=== PATIENT | female | born 1995 | race Caucasian/White ===

== ENCOUNTER → 2020-11-07 | Outpatient (CLI) | payer OTHER | LOC: M RAD 12:39 | PROVIDERS: ATTEND Obstetrics & Gynecology | DX: Z30.431 Encounter for routine checking of intrauterine contraceptive device (principal) ==

== ENCOUNTER 2020-12-05 11:30 | Outpatient (RCR) | payer OTHER | END 2020-12-07 | LOC: M PT 11:30 | PROVIDERS: ATTEND Internal Medicine | DX: M25.561 Pain in right knee (principal) ==

== ENCOUNTER → 2020-12-15 | Outpatient (REF) | payer OTHER | LOC: M LAB REF 15:53 | PROVIDERS: ATTEND Physician Assistant | DX: R10.84 Generalized abdominal pain (principal) ==

== ENCOUNTER → 2021-07-19 | Outpatient (REF) | payer OTHER ==
[~2021-07-19] MED LIST: B-12100010 PO; DOXY100C3 PO; MEDR10TA PO; METR-265 PO; OMEP40CA5 PO; ONDA-83 PO; SERT25TA21 PO
[2021-07-19 16:59] LABS: RSV AMPLIFICATION NEGATIVE (NEGATIVE)
== END ==
LOC: M WUC 15:34
PROVIDERS: ATTEND Physician Assistant
DX: J02.9 Acute pharyngitis, unspecified (principal); R68.83 Chills (without fever)

== ENCOUNTER → 2021-07-27 | Outpatient (CLI) | payer OTHER ==
[~2021-07-27] MED LIST changes: +E-Z-PAQUE 96% w/w SUSP 176GM BTL As Ordered ONE
== END ==
LOC: M RAD 10:19
PROVIDERS: ATTEND Internal Medicine Gastroenterology
DX: K50.90 Crohn's disease, unspecified, without complications (principal); R10.31 Right lower quadrant pain; D64.9 Anemia, unspecified; R10.13 Epigastric pain; E55.9 Vitamin D deficiency, unspecified

== ENCOUNTER 2021-11-23 07:59 | Emergency (ER) | payer OTHER ==
[~2021-11-23] VITALS: Ht 170.2 cm; Wt 77.3 kg
[~2021-11-23 07:59] MED LIST changes: -E-Z-PAQUE 96% w/w SUSP 176GM BTL As Ordered ONE
[2021-11-23] MEDS ORDERED: BENZONATATE 100MG CAPSULE PO ONE (08:50)
[2021-11-23] MEDS ORDERED: NS 1,000 ML IV ONE (08:50)
[2021-11-23 10:41] LABS: BASO % 0.5 % (0.0-1.0); EOS % 0.3 % (0.0-3.0); HEMATOCRIT 43.5 % (36.0-47.0); HEMOGLOBIN 14.3 g/dl (12.0-15.5); LYMPH # 1.3 10^3/uL (1.5-5.0); LYMPH % 19.6 % (24.0-44.0); MEAN CORPUSCULAR HGB CONC 32.9 g/dl (32.0-36.5); MEAN CORPUSCULAR VOLUME 85.1 fl (80.0-96.0); MONO # 0.8 10^3/uL (0.0-0.8); MONO % 12.8 % (2.0-8.0); NEUTROPHILS # 4.4 10^3/uL (1.5-8.5); NEUTROPHILS % 66.5 % (36.0-66.0); PLATELET COUNT, AUTOMATED 243 10^3/uL (150-450); RED BLOOD COUNT 5.11 10^6/uL (4.00-5.40); WHITE BLOOD COUNT 6.5 10^3/uL (4.0-10.0)
[2021-11-23 11:06] LABS: INR 1.07; PROTHROMBIN TIME 14.4 SECONDS (12.7-14.5)
[2021-11-23 11:07] LABS: PARTIAL THROMBOPLASTIN TIME 35.4 SECONDS (25.9-37.0)
[2021-11-23 11:13] LABS: HCG, SERUM QUALITATIVE NEGATIVE (NEGATIVE)
[2021-11-23 11:22] LABS: C REACTIVE PROTEIN QUANTITATIV 2.08 MG/DL (0.00-0.30); FERRITIN 154 NG/ML (8-252); LDH LACTATE DEHYDROGENASE 90 U/L (84-246); MAGNESIUM LEVEL 2.2 MG/DL (1.8-2.4)
[2021-11-23 11:23] LABS: BILIRUBIN,DIRECT 0.2 MG/DL (0.0-0.2); BILIRUBIN,TOTAL 0.6 MG/DL (0.2-1.0); TOTAL PROTEIN 7.6 GM/DL (6.4-8.2)
[2021-11-23] MEDS ORDERED: ISOVUE-370 76% 100ML VIAL As Ordered ONE (11:28)
[2021-11-23 12:22] LABS: CK-MB VALUE MASS < 1.0 NG/ML (<3.6); CPK CREATINE PHOSPHOKINASE 40 U/L (26-192)
[2021-11-23] MEDS ORDERED: BENZ200C70 PO (14:00)
[2021-11-23 15:53] VITALS: BP 135/79
== END 2021-11-23 15:55 | disposition home or self-care (01) ==
LOC: M ED 07:59
DX: U07.1 COVID-19 (principal); M43.16 Spondylolisthesis, lumbar region; N83.202 Unspecified ovarian cyst, left side; I45.10 Unspecified right bundle-branch block; F41.9 Anxiety disorder, unspecified; F32.A Depression, unspecified; M54.50 Low back pain, unspecified; K50.90 Crohn's disease, unspecified, without complications; Z87.42 Personal history of other diseases of the female genital tract; Z79.899 Other long term (current) drug therapy
CPT/HCPCS: 71275; 74177; 80076; 81000; 81015; 82550; 82553; 82728; 83605; 83615; 83690; 83735; 84145; 84484; 84703; 85025; 85384; 85610; 85730; 86140; 87086; 93005; 96360; 96361; 99284; Q9967

== ENCOUNTER 2022-01-08 18:40 | Emergency (ER) | payer OTHER ==
[~2022-01-08] VITALS: Ht 170.2 cm; Wt 77.2 kg
[~2022-01-08 18:40] MED LIST changes: +BENZ200C70 PO
[2022-01-08 19:16] VITALS: BP 120/69
== END 2022-01-08 20:37 | disposition left against medical advice (07) ==
LOC: M ED 18:40 → EDBD 18:40 → M ED 20:37
DX: Z53.21 Procedure and treatment not carried out due to patient leaving prior to being seen by health care provider (principal)

== ENCOUNTER → 2022-01-09 | Outpatient (CLI) | payer OTHER ==
[~2022-01-09] MED LIST changes: +mirena
[2022-01-09 13:03] LABS: BASO % 0.4 % (0.0-1.0); EOS # 0.1 10^3/uL (0.0-0.5); EOS % 1.5 % (0.0-3.0); HEMATOCRIT 42.8 % (36.0-47.0); HEMOGLOBIN 13.7 g/dl (12.0-15.5); LYMPH # 1.7 10^3/uL (1.5-5.0); LYMPH % 24.9 % (24.0-44.0); MEAN CORPUSCULAR HEMOGLOBIN 28.5 pg (27.0-33.0); MONO # 0.7 10^3/uL (0.0-0.8); MONO % 9.7 % (2.0-8.0); NEUTROPHILS # 4.2 10^3/uL (1.5-8.5); NEUTROPHILS % 63.1 % (36.0-66.0); PLATELET COUNT, AUTOMATED 275 10^3/uL (150-450); RED BLOOD COUNT 4.81 10^6/uL (4.00-5.40); WHITE BLOOD COUNT 6.7 10^3/uL (4.0-10.0)
[2022-01-09 13:57] LABS: CK-MB VALUE MASS < 1.0 NG/ML (<3.6); CPK CREATINE PHOSPHOKINASE 34 U/L (26-192); MB/CK RELATIVE INDEX 2.94 (< OR =4)
[2022-01-09 14:21] LABS: ALBUMIN 3.7 GM/DL (3.2-5.2); ALT/SGPT 23 U/L (12-78); BILIRUBIN,TOTAL 0.3 MG/DL (0.2-1.0); BLOOD UREA NITROGEN 13 MG/DL (7-18); CALCIUM LEVEL 9.3 MG/DL (8.5-10.1); CARBON DIOXIDE LEVEL 30 MEQ/L (21-32); CHLORIDE LEVEL 105 MEQ/L (98-107); CREATININE FOR GFR 0.74 MG/DL (0.55-1.30); FREE T4 1.04 NG/DL (0.76-1.46); GLOMERULAR FILTRATION RATE > 60.0 (>60); GLUCOSE, FASTING 87 MG/DL (70-100); POTASSIUM SERUM 4.2 MEQ/L (3.5-5.1); SODIUM LEVEL 137 MEQ/L (136-145); TOTAL PROTEIN 7.1 GM/DL (6.4-8.2)
== END ==
LOC: M WUC 09:49
PROVIDERS: ATTEND Physician Assistant
DX: R07.1 Chest pain on breathing (principal); J06.9 Acute upper respiratory infection, unspecified; Z20.828 Contact with and (suspected) exposure to other viral communicable diseases

== ENCOUNTER 2022-01-10 18:46 | Emergency (ER) | payer OTHER ==
[~2022-01-10] VITALS: Ht 170.2 cm; Wt 79.8 kg
[~2022-01-10 18:46] MED LIST changes: -mirena
[2022-01-10] MEDS ORDERED: mirena (18:54)
[2022-01-10 20:21] LABS: BASO % 0.5 % (0.0-1.0); EOS # 0.2 10^3/uL (0.0-0.5); HEMOGLOBIN 14.2 g/dl (12.0-15.5); LYMPH # 1.8 10^3/uL (1.5-5.0); LYMPH % 22.3 % (24.0-44.0); MEAN CORPUSCULAR HEMOGLOBIN 28.3 pg (27.0-33.0); MEAN CORPUSCULAR HGB CONC 32.3 g/dl (32.0-36.5); MEAN CORPUSCULAR VOLUME 87.6 fl (80.0-96.0); MONO # 0.7 10^3/uL (0.0-0.8); MONO % 7.9 % (2.0-8.0); NEUTROPHILS # 5.5 10^3/uL (1.5-8.5); NEUTROPHILS % 66.9 % (36.0-66.0); PLATELET COUNT, AUTOMATED 278 10^3/uL (150-450); RED BLOOD COUNT 5.02 10^6/uL (4.00-5.40); WHITE BLOOD COUNT 8.2 10^3/uL (4.0-10.0)
[2022-01-10 20:30] LABS: INR 1.01; PROTHROMBIN TIME 13.5 SECONDS (12.5-14.5)
[2022-01-10 20:31] LABS: PARTIAL THROMBOPLASTIN TIME 29.2 SECONDS (24.8-34.2)
[2022-01-10 20:33] LABS: D-DIMER QUANT 990.41 ng/ml (<500)
[2022-01-10 20:58] LABS: ALBUMIN 3.7 GM/DL (3.2-5.2); ALT/SGPT 26 U/L (12-78); BILIRUBIN,DIRECT < 0.1 MG/DL (0.0-0.2); BILIRUBIN,TOTAL 0.3 MG/DL (0.2-1.0); BLOOD UREA NITROGEN 14 MG/DL (7-18); CALCIUM LEVEL 8.9 MG/DL (8.5-10.1); CARBON DIOXIDE LEVEL 30 MEQ/L (21-32); CHLORIDE LEVEL 106 MEQ/L (98-107); CK-MB VALUE MASS < 1.0 NG/ML (<3.6); CPK CREATINE PHOSPHOKINASE 49 U/L (26-192); CREATININE FOR GFR 0.75 MG/DL (0.55-1.30); FREE T4 1.06 NG/DL (0.76-1.46); GLOMERULAR FILTRATION RATE > 60.0 (>60); GLUCOSE, FASTING 70 MG/DL (70-100); LIPASE 372 U/L (73-393); MB/CK RELATIVE INDEX 2.04 (< OR =4); NT-PRO BNP 22 PG/ML (<125); POTASSIUM SERUM 4.1 MEQ/L (3.5-5.1); SODIUM LEVEL 140 MEQ/L (136-145); THYROID STIMULATING HORMONE 0.977 uIU/ML (0.358-3.740); TOTAL PROTEIN 7.1 GM/DL (6.4-8.2)
[2022-01-10 21:06] LABS: HCG, SERUM QUALITATIVE NEGATIVE (NEGATIVE)
[2022-01-10] MEDS ORDERED: ISOVUE-370 76% 100ML VIAL As Ordered ONE (21:27)
[2022-01-10 23:00] VITALS: BP 133/82
== END 2022-01-10 23:21 | disposition home or self-care (01) ==
LOC: M ED 18:46
DX: R07.9 Chest pain, unspecified (principal); J20.9 Acute bronchitis, unspecified; R79.1 Abnormal coagulation profile; I45.10 Unspecified right bundle-branch block; F33.1 Major depressive disorder, recurrent, moderate; F41.9 Anxiety disorder, unspecified; F17.200 Nicotine dependence, unspecified, uncomplicated; Z79.899 Other long term (current) drug therapy
CPT/HCPCS: 36415; 71046; 71275; 80048; 80076; 82550; 82553; 83690; 83880; 84439; 84443; 84484; 84703; 85025; 85379; 85610; 85730; 93005; 99284; Q9967

== ENCOUNTER → 2022-02-05 | Outpatient (REF) | payer OTHER ==
[~2022-02-05] MED LIST changes: +mirena
[2022-02-06 08:58] LABS: APPEARANCE, URINE MANUAL CLOUDY (CLEAR); BILIRUBIN, URINE MANUAL NEGATIVE (NEGATIVE); BLOOD URINE MANUAL TRACE (NEGATIVE); COLOR, URINE MANUAL YELLOW (YELLOW); GLUCOSE, URINE (UA) MANUAL NEGATIVE (NEGATIVE); KETONE, URINE MANUAL NEGATIVE (NEGATIVE); LEUKOCYTE ESTERASE, URINE MAN POSITIVE (NEGATIVE); NITRITE, URINE MANUAL NEGATIVE (NEGATIVE); PROTEIN, URINE MANUAL NEGATIVE (NEGATIVE); UROBILINOGEN, URINE MANUAL NORMAL (NORMAL)
[2022-02-06 09:24] LABS: SQUAMOUS EPITHELIAL CELL URINE MOD AMOUNT /hpf (SMALL AMT)
[2022-02-06 09:25] LABS: AMORPHOUS SEDIMENT, URINE LARGE AMOUNT (NEGATIVE)
[2022-02-06 11:16] LABS: GC DNA AMPLIFICATION NEGATIVE (NEGATIVE)
== END ==
LOC: M LAB REF 08:13
PROVIDERS: ATTEND Physician Assistant Medical
DX: N39.0 Urinary tract infection, site not specified (principal); J02.9 Acute pharyngitis, unspecified; Z11.3 Encounter for screening for infections with a predominantly sexual mode of transmission

== ENCOUNTER → 2022-05-14 | Outpatient (REF) | payer OTHER ==
[~2022-05-14] MED LIST changes: -MEDR10TA PO; +MEDR10TA9 PO
== END ==
LOC: M LAB REF 16:21
PROVIDERS: ATTEND Physician Assistant
DX: J02.9 Acute pharyngitis, unspecified (principal)

== ENCOUNTER → 2022-06-07 | Outpatient (CLI) | payer OTHER ==
[2022-06-07 19:40] LABS: HEMATOCRIT 45.5 % (36.0-47.0); HEMOGLOBIN 14.2 g/dl (12.0-15.5); MEAN CORPUSCULAR HEMOGLOBIN 27.3 pg (27.0-33.0); MEAN CORPUSCULAR HGB CONC 31.2 g/dl (32.0-36.5); MEAN CORPUSCULAR VOLUME 87.5 fl (80.0-96.0); PLATELET COUNT, AUTOMATED 296 10^3/uL (150-450); WHITE BLOOD COUNT 8.8 10^3/uL (4.0-10.0)
[2022-06-07 19:50] LABS: ERYTHROCYTE SEDIMENTATION RATE 8 mm/hr (0-20)
[2022-06-07 20:15] LABS: ALBUMIN 4.1 G/DL (3.2-5.2); ALKALINE PHOSPHATASE 86 U/L (46-116); ALT/SGPT 23 U/L (7.0-40); AST/SGOT 18 U/L (<34); BILIRUBIN,TOTAL 0.3 MG/DL (0.3-1.2); BLOOD UREA NITROGEN 17 MG/DL (9-23); C REACTIVE PROTEIN QUANTITATIV < 0.40 MG/DL (<1.0); CALCIUM LEVEL 9.2 MG/DL (8.5-10.1); CARBON DIOXIDE LEVEL 31 MMOL/L (20-31); CHLORIDE LEVEL 106 MMOL/L (98-107); CREATININE FOR GFR 0.82 MG/DL (0.55-1.30); GLOMERULAR FILTRATION RATE > 60.0 (>60); GLUCOSE, FASTING 85 MG/DL (60-100); POTASSIUM SERUM 3.8 MMOL/L (3.5-5.1); SODIUM LEVEL 142 MMOL/L (136-145); TOTAL PROTEIN 7.2 G/DL (5.7-8.2)
== END ==
LOC: M WUC 15:14
PROVIDERS: ATTEND Internal Medicine Gastroenterology
DX: K50.90 Crohn's disease, unspecified, without complications (principal); D64.9 Anemia, unspecified; R10.13 Epigastric pain; R19.7 Diarrhea, unspecified

== ENCOUNTER → 2022-06-28 | Outpatient (CLI) | payer OTHER | LOC: M WHC 15:40 | PROVIDERS: ATTEND Obstetrics & Gynecology | DX: R10.2 Pelvic and perineal pain (principal) ==

== ENCOUNTER → 2022-07-26 | Outpatient (REF) | payer OTHER | LOC: M SFHCWAGY 17:11 | PROVIDERS: ATTEND Nurse Practitioner Family | DX: R39.15 Urgency of urination (principal) ==

== ENCOUNTER → 2022-09-13 | Outpatient (REF) | payer OTHER ==
[2022-09-13 19:38] LABS: LIPASE 71 U/L (12-53)
[2022-09-13 19:39] LABS: AMYLASE 98 U/L (30-118)
[2022-09-13 19:40] LABS: ALKALINE PHOSPHATASE 77 U/L (46-116); ALT/SGPT 23 U/L (7.0-40); AST/SGOT 10 U/L (<34); BILIRUBIN,TOTAL 0.6 MG/DL (0.3-1.2); BLOOD UREA NITROGEN 13 MG/DL (9-23); CARBON DIOXIDE LEVEL 30 MMOL/L (20-31); CHLORIDE LEVEL 105 MMOL/L (98-107); CREATININE FOR GFR 0.77 MG/DL (0.55-1.30); GLOMERULAR FILTRATION RATE > 60.0 (>60); GLUCOSE, FASTING 78 MG/DL (60-100); POTASSIUM SERUM 3.9 MMOL/L (3.5-5.1); SODIUM LEVEL 140 MMOL/L (136-145); TOTAL PROTEIN 6.9 G/DL (5.7-8.2)
[2022-09-13 19:43] LABS: FREE T3 3.4 PG/ML (2.3-4.2); THYROID STIMULATING HORMONE 1.382 uIU/ML (0.55-4.78); THYROXINE (T4) 9.4 UG/DL (4.5-10.9)
[2022-09-13 19:44] LABS: FREE T4 1.11 NG/DL (0.89-1.76)
[2022-09-13 19:46] LABS: THYROID PEROXIDASE ANTIBODY < 28.0 U/ML (<60.0)
== END ==
LOC: M LABWUC 16:36
PROVIDERS: ATTEND Family Medicine
DX: E16.2 Hypoglycemia, unspecified (principal)

== ENCOUNTER → 2022-10-04 | Outpatient (CLI) | payer OTHER | LOC: M PLALAB 14:52 | PROVIDERS: ATTEND Physical Medicine & Rehabilitation | DX: M79.602 Pain in left arm (principal) ==

== ENCOUNTER 2022-10-19 07:31 | Emergency (ER) | payer OTHER ==
[~2022-10-19] VITALS: Ht 170.2 cm; Wt 78.7 kg
[2022-10-19 07:32] VITALS: BP 114/60; TEMP 97.6; O2SAT 97
[2022-10-19] MEDS ORDERED: ONDA-83 (07:37)
[2022-10-19 08:12] LABS: BASO % 0.7 % (0.0-1.0); EOS # 0.1 10^3/uL (0.0-0.5); EOS % 2.3 % (0.0-3.0); HEMATOCRIT 40.6 % (36.0-47.0); HEMOGLOBIN 13.3 g/dl (12.0-15.5); LYMPH # 1.5 10^3/uL (1.5-5.0); MEAN CORPUSCULAR HEMOGLOBIN 27.9 pg (27.0-33.0); MEAN CORPUSCULAR HGB CONC 32.8 g/dl (32.0-36.5); MEAN CORPUSCULAR VOLUME 85.1 fl (80.0-96.0); MONO # 0.7 10^3/uL (0.0-0.8); MONO % 11.3 % (2.0-8.0); NEUTROPHILS # 3.7 10^3/uL (1.5-8.5); NEUTROPHILS % 60.5 % (36.0-66.0); PLATELET COUNT, AUTOMATED 242 10^3/uL (150-450); RED BLOOD COUNT 4.77 10^6/uL (4.00-5.40); WHITE BLOOD COUNT 6.1 10^3/uL (4.0-10.0)
[2022-10-19 08:37] LABS: LIPASE 102 U/L (12-53)
[2022-10-19 08:40] LABS: ALBUMIN 3.6 G/DL (3.2-5.2); ALKALINE PHOSPHATASE 73 U/L (46-116); ALT/SGPT 23 U/L (7.0-40); AST/SGOT 18 U/L (<34); BILIRUBIN,DIRECT 0.1 MG/DL (<0.4); BILIRUBIN,TOTAL 0.4 MG/DL (0.3-1.2); BLOOD UREA NITROGEN 13 MG/DL (9-23); CALCIUM LEVEL 8.8 MG/DL (8.5-10.1); CARBON DIOXIDE LEVEL 26 MMOL/L (20-31); CHLORIDE LEVEL 107 MMOL/L (98-107); CREATININE FOR GFR 0.82 MG/DL (0.55-1.30); GLOMERULAR FILTRATION RATE > 60.0 (>60); GLUCOSE, FASTING 96 MG/DL (60-100); POTASSIUM SERUM 4.3 MMOL/L (3.5-5.1); SODIUM LEVEL 140 MMOL/L (136-145); TOTAL PROTEIN 6.6 G/DL (5.7-8.2)
[2022-10-19 08:43] LABS: HCG, SERUM QUALITATIVE NEGATIVE (NEGATIVE)
== END 2022-10-19 11:10 | disposition left against medical advice (07) ==
LOC: M ED 07:31
DX: Z53.21 Procedure and treatment not carried out due to patient leaving prior to being seen by health care provider (principal)

== ENCOUNTER → 2023-02-05 | Outpatient (CLI) | payer OTHER ==
[~2023-02-05] MED LIST changes: +ONDA-83
[2023-02-05 19:47] LABS: C REACTIVE PROTEIN QUANTITATIV < 0.40 MG/DL (<1.0)
[2023-02-05 19:49] LABS: FERRITIN 55.6 NG/ML (7.3-270.7); IRON (FE) 78 UG/DL (50-170); PERCENT SATURATION 24.2 % (13.2-45.0); TOTAL IRON BINDING CAPACITY 322 UG/DL (250-425)
[2023-02-05 19:50] LABS: VITAMIN B12 LEVEL 483 PG/ML (211-911)
== END ==
LOC: M WUC 14:55
PROVIDERS: ATTEND Internal Medicine Gastroenterology
DX: R10.31 Right lower quadrant pain (principal); K50.90 Crohn's disease, unspecified, without complications; R19.7 Diarrhea, unspecified

== ENCOUNTER 2023-02-27 14:38 | Outpatient (CLI) | payer OTHER ==
[~2023-02-27] VITALS: Ht 170.2 cm; Wt 77.3 kg
[~2023-02-27 14:38] MED LIST changes: +ALBUTEROL SULFATE 2.5MG/0.5ML INH NEB SOLN INH PRN; +EPINEPHrine INJ 1 MG/ML 1ML AMP IM PRN; +diphenhydrAMINE 50MG/ML VIAL IV PRN; +methylPREDNISolone 125MG 2ML VIAL IV PRN
[2023-02-27 14:55] VITALS: BP 132/63; O2SAT 100
[2023-02-27] MEDS ORDERED: USTEKINUMAB 390 MG in NS 172 ML IV ONE (15:30)
[2023-02-27] MEDS ORDERED: NS 1,000 ML IV SCH (15:30)
[2023-02-27 17:10] VITALS: BP 125/76; O2SAT 100
== END 2023-02-27 17:11 | disposition home or self-care (01) ==
LOC: M INFU 14:38
PROVIDERS: ATTEND Internal Medicine Gastroenterology
DX: K50.90 Crohn's disease, unspecified, without complications (principal)
CPT/HCPCS: 96365; J3358

== ENCOUNTER → 2023-05-16 | Outpatient (CLI) | payer OTHER ==
[~2023-05-16] MED LIST changes: -ALBUTEROL SULFATE 2.5MG/0.5ML INH NEB SOLN INH PRN; -EPINEPHrine INJ 1 MG/ML 1ML AMP IM PRN; -diphenhydrAMINE 50MG/ML VIAL IV PRN; -methylPREDNISolone 125MG 2ML VIAL IV PRN
== END ==
LOC: M WHC 13:09
PROVIDERS: ATTEND Obstetrics & Gynecology
DX: N97.9 Female infertility, unspecified (principal)

== ENCOUNTER → 2023-05-16 | Outpatient (CLI) | payer OTHER ==
[2023-05-16 19:36] LABS: FREE T4 1.05 NG/DL (0.89-1.76); THYROID STIMULATING HORMONE 1.552 uIU/ML (0.55-4.78)
[2023-05-16 19:37] LABS: FOLLICLE STIMULATING HORMONE 7.6 mIU/ML; LUTEINIZING HORMONE 6.8 mIU/ML; PROGESTERONE 1.34 NG/ML
[2023-05-19 15:42] LABS: PROLACTIN 6.74 NG/ML
== END ==
LOC: M WUC 14:11
PROVIDERS: ATTEND Obstetrics & Gynecology
DX: N97.9 Female infertility, unspecified (principal)